=== PATIENT | female | born 1990 | race Caucasian/White ===

== ENCOUNTER → 2019-10-26 | Outpatient (REF) | payer OTHER | LOC: M SFHCLERA 17:41 | PROVIDERS: ATTEND Nurse Practitioner Family | DX: J00 Acute nasopharyngitis [common cold] (principal) ==

== ENCOUNTER 2021-03-22 06:07 | Day surgery (SDC) | payer OTHER, SELFPAY ==
[~2021-03-22] VITALS: Ht 165.1 cm; Wt 94.0 kg
[~2021-03-22 06:07] MED LIST: HEPARIN SOD (PORCINE) 5000UNITS/ML 1ML VIAL/SYRINGE SQ ONE; LIDOCAINE 1% MDV 20ML VIAL SQ PRN; LR 1,000 ML IV ONE; METF-838 PO; ONDANSETRON 4MG/2ML VIAL IV PRN; PHEN15CA PO; ceFAZolin SOD 2 GM in IV 1 EA IV ONE
[2021-03-22] MEDS ORDERED: LIDOCAINE 1% MDV 20ML VIAL As Ordered ONE ×2 (06:42→10:07)
[2021-03-22] MEDS ORDERED: BUPIVACAINE LIPOSOME/PF 1.3% 20ML VIAL (13.3MG/ML)(EXPAREL)(C9290 PER1MG) As Ordered ONE (06:42)
[2021-03-22] MEDS ORDERED: BACITRACIN PWD 50,000 UNITS VIAL As Ordered ONE (06:42)
[2021-03-22] MEDS ORDERED: EPINEPHrine INJ 1 MG/ML 1ML AMP As Ordered ONE ×2 (06:43→10:07)
[2021-03-22] MEDS ORDERED: ROCURONIUM BROMIDE 50 MG/5 ML VIAL As Ordered ONE ×3 (07:19→10:19)
[2021-03-22] MEDS ORDERED: fentaNYL 250 MCG/5 ML INJECTION (J3010) As Ordered ONE (07:19)
[2021-03-22] MEDS ORDERED: propofoL 200 MG/20 ML VIAL As Ordered ONE (07:19)
[2021-03-22] MEDS ORDERED: LIDOCAINE 2% 100MG/5ML SDV (FOR ANES.) As Ordered ONE (07:19)
[2021-03-22] MEDS ORDERED: MIDAZOLAM INJ 2MG/2ML VIAL (J2250 PER 1MG) As Ordered ONE (07:20)
[2021-03-22] MEDS ORDERED: dexameTHASONE 4 MG/ML 1ML VIAL (J1100 PER 1MG) As Ordered ONE (08:02)
[2021-03-22] MEDS ORDERED: HYDROmorphone HCL 2 MG/ML 1ML VIAL (J1170) As Ordered ONE (08:44)
[2021-03-22] MEDS ORDERED: ONDANSETRON 4MG/2ML VIAL As Ordered ONE (08:44)
[2021-03-22] MEDS ORDERED: SUGAMMADEX SODIUM 500 MG/5 ML VIAL (BRIDION) As Ordered ONE ×2 (08:45→08:46)
[2021-03-22] MEDS ORDERED: METOCLOPRAMIDE INJ 10MG/2ML VIAL (J2765 PER 1) As Ordered ONE (08:45)
[2021-03-22] MEDS ORDERED: ACETAMINOPHEN 1000MG 100ML IV BTL (OFIRMEV) (J0131 PER 10MG) As Ordered ONE (08:45)
[2021-03-22] MEDS ORDERED: PHENYLephrine 500MCG 5ML (100MCG/ML) SYRINGE As Ordered ONE (08:52)
[2021-03-22] MEDS ORDERED: ePHEDrine SULFATE 25 MG/5 ML(5MG/ML) SYRINGE As Ordered ONE (09:25)
--- NOTE | 2021-03-22 12:28 | POST-OPPD ---
Postoperative Procedure Note Date Of Procedure: March 22, 2021 PREOPERATIVE DIAGNOSIS: Bilateral breast hypertrophy. Abdominal wall lipodystrophy. POSTOPERATIVE DIAGNOSIS: same FINDINGS: Large breasts. PROCEDURE: Bilateral breast reduction, liposuction abdomen, flanks. SURGEON: Dr Katz ANESTHESIA: General SPECIMENS: Right breast 586 gm, Left breast 548 gm ESTIMATED BLOOD LOSS: 200cc REPLACED: none DRAINS: 10 mm ROCHELLE x 2 COMPLICATIONS: none POSTOPERATIVE CONDITION: stable REINIER KATZ DO March 22, 2021 12:28
[2021-03-22] MEDS ORDERED: ACETAMINOPHEN TAB 650MG DOSE (2X325MG) PO PRN (12:30)
[2021-03-22] MEDS ORDERED: fentaNYL 100 MCG/2 ML INJECTION (J3010) IV PRN (12:30)
[2021-03-22] MEDS ORDERED: HYDROMORPHONE HCL 0.5 MG/ 0.5 ML SYRINGE (J1170 PER 1) IV PRN (12:30)
[2021-03-22] MEDS ORDERED: PERCOCET 5MG/325MG TAB PO PRN (12:30)
[2021-03-22] MEDS ORDERED: ONDANSETRON 4MG/2ML VIAL IV PRN (12:30)
[2021-03-22] MEDS ORDERED: LR 1,000 ML IV SCH (12:30)
--- NOTE | 2021-03-22 12:31 | ROOPDOC ---
[facility] Report Of Operation Report of Operation DATE OF PROCEDURE: 03/22/21 PREOPERATIVE DIAGNOSIS: Bilateral breast hypertrophy. Abdominal wall lipodystrophy. POSTOPERATIVE DIAGNOSIS: same FINDINGS: Large breasts. PROCEDURE: Bilateral breast reduction, liposuction abdomen, flanks. SURGEON: Dr Katz ANESTHESIA: General SPECIMENS: Right breast 586 gm, Left breast 548 gm ESTIMATED BLOOD LOSS: 200cc REPLACED: none DRAINS: 10 mm ROCHELLE x 2 COMPLICATIONS: none POSTOPERATIVE CONDITION: stable DESCRIPTION OF PROCEDURE: This is a 30-year-old female who upper back and neck pain worsened by large breasts. She wears 38H bra. She is scheduled for bilateral breast reduction. Risks, benefits, and alternatives were discussed with the patient in detail, and she is ready to proceed. Patient also has lipodystrophy of the abdomen and scheduled for liposuction of the abdomen and lateral flanks The day of surgery, she was marked in the upright position and informed consent was obtained. She measured 33 cm from sternal notch to nipple on both sides, IMF at 24 cm bilaterally. She was brought into the operating room and placed in the supine position. Preoperative antibiotics and 5000 units heparin subcutaneous were given. Sequential pneumatic stocking were placed on the lower calves. General anesthesia was induced. She was prepped and draped in the usual sterile fashion. We started our procedure on the right side. Her nipple areolar complex was outlined 45 mm in diameter, and the patient was marked according superior medial pedicle. We started our incision by scoring the nipple areolar complex area, and then dissection was continued until the inferior lateral portion of the breast was resected. Hemostasis was obtained using electrocautery. The pedicle was de- epithelialized using Dewey scissors, good perfusion to the nipple at all times. Wound was irrigated with Bacitracin solution. We used Exparel 6 cc for local anesthesia to infiltrate in the Pectoralis muscle as well as the breast tissue. Tissel sealant used for hemostasis. Than pedicle was turned superior to its new location at 24 cm from sternal notch. The mound was re-created using conforming 0 Vicryl sutures. Pillars were closed with interrupted 3-0 Monocryl sutures. The vertical limb was 8 cm. Excess tissue inferiorly was measured and resected, creating the horizontal scar. Nipple area complex was brought into view through the new opening and sutured in place with 3-0 and 4-0 Monocryl sutures and a 5-0 plain. A 10 mm Gaurang-Lees drain was placed through the lateral portion of the horizontal incision. Then we turned our attention to the left side. Mirror procedure was carried out. Again, resection was done according to superior-medial pedicle using electrocautery and PEEK cautery. Hemostasis was obtained. The pedicle was in good viable condition. Exparel was infiltrated through the pectoralis muscle and the breast tissue 6 cc. Than pedicle was turned superior to its new location at 24 cm from sternal notch. Tissel sealant used for hemostasis. The mound was re- created using conforming 0 Vicryl sutures. Pillars were closed with interrupted 3-0 Monocryl sutures. The vertical limb was 8 cm. Excess tissue inferiorly was measured and resected, creating the horizontal scar. Nipple area complex was brought into view through the new opening and sutured in place with 3-0 and 4-0 Monocryl sutures and a 5-0 plain gut suture in interrupted fashion. A 10 mm Gaurang-Lees drain was placed through the lateral portion of the horizontal incision. Remaining Exparel injected in the horizontal incision. Total Exparel use 20 cc. Resected tissue sent to pathology in two specimens right and left breast tissue. Right breast 586 grams, left breast 548 grams. Then the second part of the procedure started. 3 small stab incisions were carried out to along the lower abdominal area and one through the superior port of umbilicus. 2400 mL of tumescent solution was infiltrated throughout abdomen. VASER liposuction performed for 10 minutes. Then suction assisted lipectomy was done throughout abdomen with 3 different cannulas totaling 2000 mL. Good symmetry achieved. Stab incisions were closed with interrupted 4 Monocryl sutures. Dressings were applied to vertical and horizontal incision: Prineo. Nipples areolar complex: Xeroform and a bulky dressing with a surgical bra. Patient was extubated in the operating room without difficulty and was tra nsferred to the recovery room in stable condition. REINIER KATZ DO March 22, 2021 12:31
[2021-03-22] MEDS: oxyCODONE 5MG TAB PO PRN ×2 (13:17→14:16)
[2021-03-22 14:30] VITALS: BP 122/71
[2021-03-22 15:30] VITALS: BP 124/71
[2021-03-22 16:30] VITALS: BP 121/69
[2021-03-22] MEDS: LR 1,000 ML IV SCH ×2 (16:42→23:15)
[2021-03-22] MEDS: ceFAZolin SOD 1 GM in D5W MINI-BAG PLUS 50 ML IV SCH ×2 (16:43→23:15)
[2021-03-22 17:30] VITALS: BP 119/70
[2021-03-22 18:30] VITALS: BP 119/70
[2021-03-22 22:30] VITALS: BP 119/65
[2021-03-22] MEDS: KETOROLAC TROMETHAMINE 10 MG TAB PO PRN (23:14)
[2021-03-23 02:00] VITALS: BP 114/60
[2021-03-23 05:29] VITALS: BP 117/65
[2021-03-23] MEDS: KETOROLAC TROMETHAMINE 10 MG TAB PO PRN (05:31)
[2021-03-23] MEDS: ceFAZolin SOD 1 GM in D5W MINI-BAG PLUS 50 ML IV SCH (07:47)
[2021-03-23] MEDS ORDERED: metFORMIN XR 500MG TAB *GLUCOPHAGE XR PO SCH (09:00)
[2021-03-23 10:00] VITALS: BP 124/67
--- NOTE | 2021-03-23 10:03 | IPNPDOC ---
Subjective General Date Seen: March 23, 2021 Subject Chief Complaint/History The patient is a 30-year-old female admitted with a reason for visit of Bilateral Breast Hypertrophy, Abdominal.... S/p BBR, liposuction abdomen POD 1. Doing well. Pain controlled. Ambulating, tolerating diet. Current Medications Current Medications Current Medications Medications (Trade) Dose Ordered Sig/Maximino Route PRN Reason Start Time Stop Time Status Last Admin Dose Admin Acetaminophen (Tylenol Tab) 650 mg Q6H PRN PO MILD PAIN (PS 1-4) 03/22/21 12:30 03/22/21 20:13 Cefazolin Sodium 1 gm/Dextrose 50 ml @ 100 mls/hr Q8H IV 03/22/21 16:00 03/23/21 07:47 Fentanyl Citrate (Sublimaze) 25 mcg Q5MP PRN IV PAIN LEVEL 5-10 03/22/21 12:30 03/22/21 13:30 DC Hydromorphone HCl (Dilaudid) 0.2 mg Q5MP PRN IV PAIN LEVEL 4-7 03/22/21 12:30 03/22/21 13:30 DC Ketorolac Tromethamine (ToRADol) 10 mg Q6HP PRN PO MODERATE PAIN (PS 5-7) 03/22/21 12:30 03/27/21 12:29 03/23/21 05:31 Lactated Ringer's 1,000 ml @ 75 mls/hr [id number] IV 03/22/21 12:30 03/22/21 23:15 Lactated Ringer's 1,000 ml @ 100 mls/hr Q10H IV 03/22/21 12:30 03/22/21 13:30 DC Lidocaine HCl (LIDOCAINE 1% MDV 20ml) 0.1 ml ONCE PRN SQ DISCOMFORT BEFORE IV START 03/22/21 06:00 03/22/21 12:28 DC Metformin HCl (Glucophage Xr) 500 mg BID PO 03/23/21 09:00 03/23/21 09:09 Ondansetron HCl (ZOFRAN INJection) 4 mg Q4H PRN IV NAUSEA OR VOMITING 03/22/21 01:00 Ondansetron HCl (ZOFRAN INJection) 4 mg Q4HP PRN IV NAUSEA OR VOMITING 03/22/21 12:30 03/22/21 13:30 DC 03/22/21 12:44 Oxycodone HCl (Roxicodone, Oxyir) 5 mg ASDIRECTED PRN PO PAIN LEVEL 1-4 03/22/21 12:30 03/22/21 14:16 DC 03/22/21 14:16 Oxycodone/ Acetaminophen (Percocet 5mg/ 325mg Tablet) 2 tab Q4HP PRN PO PAIN LEVEL 8-10 03/22/21 12:30 03/23/21 09:10 Allergies Coded Allergies: No Known Allergies (Unverified , 02/07/21) Objective Physical Examination Examination GENERAL APPEARANCE:Patient seen, laying in bed, awake, alert, and oriented. Comfortable, in no acute distress. SKIN: Warm and moist. BREAST: Right and left soft, non-tender incisions intact. ROCHELLE drains: L20, R15 cc/24 hr. NAC: Viable, warm, symmetrical, mild post-op ecchymosis, no expanding hematoma. LUNGS: Clear to auscultation bilaterally. No wheezing appreciated. HEART: No chest wall abnormalities. Regular rate and rhythm with no murmurs appreciated. ABDOMEN: Abdomen is soft, non-tender, non-distended. Incision intact. Non expanding ecchymosis mild. Consistent with surgery. Post op swelling mild. EXTREMITIES: No edema identified. No calf tenderness. Vital Signs Vital Signs Date Time Temp Pulse Resp B/P (MAP) Pulse Ox O2 Delivery O2 Flow Rate FiO2 03/23/21 09:10 18 03/23/21 05:29 98.3 83 117/65 (82) 96 Room Air I&Os I&O- Last 24 Hours up to 6 AM 03/23/21 06:00 Intake Total 3270 ml Output Total 1935 ml Balance 1335 ml Impression S/p BBR and liposuction abdomen POD 1. Doing well. Stable for discharge. Instructions given, Dressings changed. F/up plastic surgery. Plan / VTE VTE Prophylaxis Ordered?: Yes REINIER KATZ DO March 23, 2021 10:03
[2021-03-23] MEDS ORDERED: PERCOCET PO ×2 (10:07→11:57)
== END 2021-03-23 12:20 | disposition home or self-care (01) ==
LOC: M SDC 06:07 → M MS5PR 14:15 → M SDC 03-23 12:20
PROVIDERS: ATTEND Plastic Surgery Surgery of the Hand
DX: N62 Hypertrophy of breast (principal); E88.1 Lipodystrophy, not elsewhere classified; M54.2 Cervicalgia; M54.6 Pain in thoracic spine; R01.0 Benign and innocent cardiac murmurs; L30.9 Dermatitis, unspecified; E28.2 Polycystic ovarian syndrome; Z72.0 Tobacco use; Z79.84 Long term (current) use of oral hypoglycemic drugs
CPT/HCPCS: 15877; 19318; 81025; 88300; 88305; C9290; J0131; J0171; J0690; J1100; J1170; J1644; J2250; J2370; J2405; J2765; J3010